=== PATIENT | female | born 1945 | race Caucasian/White ===

== ENCOUNTER → 2020-04-10 | Outpatient (CLI) | payer OTHER ==
[~2020-04-10] MED LIST: ACETAMINOPHEN-1 EAC1 PO; CAL MAG ASPART1 EACH PO; CARVEDILOL3.125 MG PO; CENTRUM SILVER1 EAC4 PO; COREG CR20 MG; FISH OIL 1,0001 EAC5 PO; KLOR-CON 10 ER10 MEQ PO; LEVOTHYROXINE0.05 MG; MINIPRIN81 MG; PHENERGAN 25 MG25 M1 PO; ZOCOR5 MG; ZOFRAN ODT4 MG PO
== END ==
LOC: SJCVC 11:49
PROVIDERS: ATTEND Internal Medicine
DX: I25.10 Atherosclerotic heart disease of native coronary artery without angina pectoris (principal); I10 Essential (primary) hypertension; E78.5 Hyperlipidemia, unspecified; I65.23 Occlusion and stenosis of bilateral carotid arteries; I73.9 Peripheral vascular disease, unspecified; Z95.1 Presence of aortocoronary bypass graft; Z90.49 Acquired absence of other specified parts of digestive tract; Z79.899 Other long term (current) drug therapy

== ENCOUNTER → 2020-11-28 | Outpatient (CLI) | payer OTHER | LOC: SJCVCIMAG 07:56 | PROVIDERS: ATTEND Internal Medicine | DX: I25.10 Atherosclerotic heart disease of native coronary artery without angina pectoris (principal); R00.1 Bradycardia, unspecified; I45.4 Nonspecific intraventricular block; I10 Essential (primary) hypertension; E78.5 Hyperlipidemia, unspecified; I73.9 Peripheral vascular disease, unspecified; I65.23 Occlusion and stenosis of bilateral carotid arteries; Z95.1 Presence of aortocoronary bypass graft; Z79.82 Long term (current) use of aspirin; Z79.899 Other long term (current) drug therapy ==

== ENCOUNTER → 2021-01-22 | Outpatient (CLI) | payer OTHER ==
[~2021-01-22] MED LIST changes: +ASA81BEC PO; +LEVOTHYROXINE50 MC1 PO; +LOSARTAN-HCTZ1 EACH PO
== END ==
LOC: LAB 09:27
PROVIDERS: ATTEND Orthopaedic Surgery
DX: Z01.812 Encounter for preprocedural laboratory examination (principal); Z20.822 Contact with and (suspected) exposure to COVID-19

== ENCOUNTER 2021-01-27 08:12 | Inpatient (IN) | payer OTHER ==
[2021-01-13 09:30] LABS: URINE BILIRUBIN NEGATIVE (Negative); URINE BLOOD NEGATIVE (Negative); URINE CLARITY CLEAR; URINE COLOR YELLOW; URINE GLUCOSE-RANDOM* NEGATIVE (Negative); URINE KETONES NEGATIVE (Negative); URINE LEUKOCYTES-REFLEX NEGATIVE (Negative); URINE NITRITE-REFLEX NEGATIVE (Negative); URINE PROTEIN (DIPSTICK) NEGATIVE (Negative); URINE UROBILINOGEN 0.2 E.U./dl (0.2-1.0)
[2021-01-13 09:49] LABS: HEMATOCRIT 39.9 % (37.0-47.0); HEMOGLOBIN 13.1 gm/dL (12.0-15.0); MCH 29.1 pg (26.0-34.0); MCHC 32.9 g/dL (28.0-37.0); MCV 88.5 fL (80.0-100.0); RBC 4.51 mil/uL (4.20-5.00); RDW 13.6 % (10.5-14.5); WBC 4.9 thou/uL (4.0-11.0)
[2021-01-13 09:52] LABS: INR 1.1; PROTIME 11.4 Seconds (9.3-11.4)
[2021-01-13 09:53] LABS: ALBUMIN 3.9 g/dL (3.4-5.0); CALCIUM 8.4 mg/dL (8.5-10.1); CREATININE 0.9 mg/dL (0.6-1.0); POTASSIUM 3.9 mmol/L (3.5-5.1)
[~2021-01-27] VITALS: Ht 165.1 cm; Wt 82.6 kg
[2021-01-27] VITALS (9 sets, daily range): BP systolic 110–166; BP diastolic 48–117
--- NOTE | 2021-01-27 14:42 | NUR ---
ASSUMED PT CARE THIS AM. PT BLOOD PRESSURE READING HIGH ON MACHINE, RETOOK BLOOD PRESSURE AND PRESSURE WAS NOT HIGH MACHINE WAS READING. PATIENT REPORTING NAUSEA, GAVE MEDS PER EMAR AND RESOLVED. INSTRUCTED PATIENT ON HOW TO USE CALL LIGHT, REPORTS UNDERSTANDING. REPORTING NUMBNESS IN RIGHT KNEE FROM FEMORAL BLOCK. ON 2 LITERS OXYGEN WHEN PATIENT CAME TO UNIT, PATIENT ON ROOM AIR NOW. ON A CLEAR LIQUID DIET TOLERATING WELL. PATIENT HAS FULL MOBILITY OF TOES, NO NUMBNESS OR TINGLING IN TOES. FALL PRECAUTIONS ARE IN PLACE.
[2021-01-28 03:21] VITALS: BP 116/47
[2021-01-28 05:34] LABS: HEMATOCRIT 26.5 % (37.0-47.0); HEMOGLOBIN 9.2 gm/dL (12.0-15.0); MCHC 34.5 g/dL (28.0-37.0); MCV 86.9 fL (80.0-100.0); RBC 3.05 mil/uL (4.20-5.00); RDW 13.3 % (10.5-14.5); WBC 9.3 thou/uL (4.0-11.0)
--- NOTE | 2021-01-28 05:43 | NUR ---
RECEIVED CARE OF THIS PATIENT AT 1900. PATIENT ALERT AND ORIENTED X4. HAS ANA, TEDS, SCD;S AND ICE ON R KNEE. HEMAVAC INTACT. C/O N/V AND PAIN, MED GIVEN FOR BOTH. NOT UP OUT OF BED YET D/T THE NUMBNESS OF R LEG AND THE N/V. SLEPT OFF AND ON DURING NIGHT.
[2021-01-28 07:56] VITALS: BP 110/47
[2021-01-28 16:05] VITALS: BP 125/39
[2021-01-28 16:09] VITALS: BP 125/39
--- NOTE | 2021-01-28 18:39 | O ---
[facility] [place] [address] OPERATIVE REPORT Name: LUCY ALAS Room #: 438-P ADM IN M.R.#: [id number] Admission: 01/27/21 Attend Phys: Mac Duvall MD Discharge: Date of : 43 Report #: [id number] THIS REPORT FOR: cc: Lukasz White MD, Neal A. MD Clymer, David J. MD ~ DATE OF SERVICE: 01/27/2021 PREOPERATIVE DIAGNOSIS: Degenerative arthritis, right knee. POSTOPERATIVE DIAGNOSIS: Degenerative arthritis, right knee. PROCEDURE: Right total knee arthroplasty. SURGEON: Mac Duvall MD INDICATIONS: This is very active and fit 76-year-old female remains fully active and independent and is still working. She complains of progressive right knee pain, which limits her activities both at work and at home. Clinical exam and x-rays confirm moderate degenerative arthritis. She has tried conservative measures including anti-inflammatories and joint injection without much lasting benefit. She has decided to go ahead with right total knee arthroplasty. DESCRIPTION OF PROCEDURE: The patient was taken to the operating room where she was placed under general anesthesia. Prophylactic intravenous antibiotics were administered. The right knee and leg were meticulously prepped and draped and a thigh tourniquet inflated to 300 mmHg. An anterior longitudinal skin incision was made and carried through the medial retinaculum. The patella was reflected laterally. Moderate degenerative change in all 3 compartments was noted. The Pat and Nephew knee system was utilized. Intramedullary guides were used on both the femur and the tibia. The femur was cut in 5 degrees of valgus. The tibia was cut perpendicular to the long axis of the bone. The femur seemed best suited for a size 4 femoral component and the trial seated nicely. The tibia was also best suited for a size 4 tibial component and the trial seated nicely. A trial reduction was performed and a 9 mm polyethylene insert fit nicely. This resulted in full knee extension and flexion beyond 130 degrees with good stability. The patellar surface was resected and a 35 mm patellar button fit nicely. Appropriate anchor holes were created. The trial components were removed. The surfaces were thoroughly irrigated and dried. The intramedullary canal was blocked with bone block on both the femoral and tibial sides. Methyl methacrylate cement was mixed and injected into the porous surface of the proximal tibia. The permanent components were brought on to the field. The Pat and Nephew size 4 Lupe II tibial baseplate was [address] [address] OPERATIVE REPORT Name: LUCY ALAS Room #: 438-P [facility] IN .R.#: [id number] Admission: 01/27/21 Attend Phys: Mac Duvall MD Discharge: Date of : 43 Report #: [id number]. This was impacted into position. It seated nicely and appeared to be secure. Excess cement was removed from its margins. A size 4 cruciate retaining 9 mm thick patellar component was then inserted and snapped into place. This seated nicely and appeared to be secure. The size 4 right Legion femoral component was impacted on the distal femur. A small amount of cement was used at the distal locking holes as the bone was moderately osteopenic. This component also seated nicely and appeared to be secure. The patellar button was cemented into place using cement and appropriate anchor holes. It was secured with a patellar clamp while the cement hardened. All excess cement was removed. Once the cement was firm, range of motion, alignment and stability were assessed and felt to be satisfactory. The knee demonstrates full knee extension and flexion beyond 130 degrees and demonstrates good stability with varus and valgus stress. The patellar tracks nicely and appears to be stable. A single Hemovac was then left in the wound exiting through a separate stab incision. The fascia was closed with multiple #1 Vicryl sutures. The tourniquet was deflated after a total tourniquet time of 48 minutes. Good hemostasis was confirmed. The subcutaneous tissues were thoroughly irrigated and then closed using 0 Monocryl. Skin shar were used in the skin. The patient was then awakened and returned to recovery room in good condition. <ELECTRONICALLY SIGNED> By: Mac Duvall MD 01/28/21 [id number] Mac Duvall MD /nt
[2021-01-28 19:30] VITALS: BP 149/42
--- NOTE | 2021-01-28 20:05 | NUR ---
PT A&&OX4, VSS, PAIN MEDICATION GIVEN. PATIENT CONTINUES TO HAVE NAUSEA. PATIENT WORKED WITH PT. NO OUTPUT FROM HEMOVAC. ORDER PLACED TO REMOVE HEMAVAC AT SHIFT CHANGE, NOTIFIED ONCOMING NURSE. PATIENT DID NOT VOMIT. PATIENT ADVANCED TO FULL LIQUIDS. NO SIGNS OF DISTRESS. WILL CONTINUE TO MONITOR.
[2021-01-29 03:49] VITALS: BP 145/46
--- NOTE | 2021-01-29 05:09 | NUR ---
RECIEVED CAR OF THIS PATIENT AT 1900. PATIENT ALERT AND ORIENTED X4. C/O PAIN AND NAUSEA. MED GIVEN FOR BOTH. REMAINS ON BEDREST D/T LEGS BEING WEAK. SLEPT MOST OF NIGHT.
[2021-01-29 06:00] LABS: HEMATOCRIT 26.2 % (37.0-47.0); MCH 29.9 pg (26.0-34.0); MCHC 34.5 g/dL (28.0-37.0); MCV 86.8 fL (80.0-100.0); RBC 3.02 mil/uL (4.20-5.00); RDW 13.6 % (10.5-14.5); WBC 9.4 thou/uL (4.0-11.0)
[2021-01-29 08:30] VITALS: BP 136/53
--- NOTE | 2021-01-29 10:18 | NUR ---
ASSESSMENT: CM REVIEWED CHART AND SPOKE WITH PATIENT. PT IS ALERT AND ORIENTED X4. PT IS S/P RIGHT TKR. PT REPORTS LIVING IN AN APT ALONE. PT HAS TWO VERY LONG WIDE STEPS ON FROM THE STREET TO GET TO HER APT. PT REPORTS NO STEPS ONCE INSIDE. PT HAS A WALKER AT HOME THAT IS BORROWED BUT IS A THREE WHEELED ROLLATER. PHYSICAL THERAPY WORKING WITH PATIENT REGARDING IF THIS IS THE SAFEST OPTION OR NOT. PT REPORTS SHE IS WANTING HH AT DISCHARGE AND HAS NOT HAD BEFORE. PT HAS NO PREFERENCE OF HH AGENCY. CM FAXED REFERRAL TO [facility]. PT REPORTS HER SON IS SUPPORTIVE BUT WORKS [employer] DIST[employer]. PT STATES HER FAMILY AND [employer] CAN HELP IF SHE NEEDS TO RUN ERRANDS. PT WILL CONTINUE WITH THERAPY. CM WILL CONTINUE TO FOLLOW TO ASSIST NEEDED.
[2021-01-29 15:15] VITALS: BP 126/39
--- NOTE | 2021-01-29 19:00 | NUR ---
PT CARE ASSUMED AT 0700. A&Ox4. PT UP IN THE RECLINER MOST OF THE DAY. TRANSFERRED PT TO THE BEDSIDE COMMODE WHEN TRANSFERRING BACK TO THE RECLINER WITH PT PATIENT HAD AN EPISODE OF HER BLOOD PRESSURE DROPPING. VITALS STABLE AFTER RESTING A FEW MINUTES. LIPSCOMB IN PLACE. IV PATENT WITH NO REDNESS OR EDEMA, SALINE LOCKED. ANA DRESSING. ICEPACK. NO EPISODES OF NAUSEA OR VOMITTING. POTENTIAL DISCAHRGE TOMORROW. FALL PROTOCOL IN PLACE. CALL LIGHT IN REACH. PAIN CONTROLLED WELL WITH PAIN MEDICATION ON BOARD.
[2021-01-29 19:29] VITALS: BP 142/51
--- NOTE | 2021-01-30 00:57 | NUR ---
ASSESSED AT START OF SHIFT. PT A&OX4 RESTING IN BED DENIES N/V ON ASSESSEMENT. EVENING MED GIVEN AND PT KIRK IT WELL. UPX1 TO BSC. ANA DRESSING AND ICE PACK IN PLACE. FALL PREC MAINTAINED AND WILL CONT TO MONITOR.
[2021-01-30 04:43] VITALS: BP 143/48
[2021-01-30 06:05] LABS: HEMATOCRIT 25.1 % (37.0-47.0); HEMOGLOBIN 8.6 gm/dL (12.0-15.0); MCH 30.2 pg (26.0-34.0); MCHC 34.4 g/dL (28.0-37.0); MCV 87.9 fL (80.0-100.0); RBC 2.86 mil/uL (4.20-5.00); RDW 13.4 % (10.5-14.5); WBC 7.8 thou/uL (4.0-11.0)
[2021-01-30 08:25] VITALS: BP 129/100
--- NOTE | 2021-01-30 10:00 | NUR ---
Received awake on bed. Due medications given as prescribed, able to swallow meds w/o difficulty. On room air. Vital signs stable. On MS, not on telemetry; no complains and signs of chest pain, crushing sensation and heaviness. On full liquid diet, tolerating well; no nausea, no vomiting and no abdominal pain noted- Pt seen and examined by Dr White this AM, diet progressed to regular for breakfast- to monitor for nausea and vomiting. Continent of bowel and bladder, able to use bedpan and bedside commode. With SL at R hand- intac. S/P TKR POD 3- dressing C/D/I; ongoing PT; complained of pain, due PRN pain meds given as prescribed. Ice packs, SCDs and thigh high bilat SONYA hose in place; ANA dressing in place. Falls bundle in place. To continue monitoring patient.
--- NOTE | 2021-01-30 12:56 | NUR ---
on-going assessment: cm reviewed chart and met with patient. PT CONTINUES TO WORK WITH PT/OT AND IS SLOWLY PROGRESSION. PENDING HER PROGRESSION SHE MAY REQUIRE POST ACUTE CARE AT DISCHARGE AND CM DISCUSSED WITH PATIENT. PT STATES SHE PREFERS TO GO HOME IF POSSIBLE AND WORRIED ABOUT THE PANDEMIC AT A SNF BUT REPORTS SHE WOULD AGREE IF NEEDED. PT WANTED A REFERRAL SENT TO [facility]. CM FAXED REFERRAL AND NOTIFIED IRAIS [facility] AT [facility]. CM WILL CONTINUE TO FOLLOW TO SEE HOW PATIENT PRGORESSES WITH PT/OT.
[2021-01-30 16:29] VITALS: BP 120/47
[2021-01-30 19:37] VITALS: BP 130/55
--- NOTE | 2021-01-30 23:03 | NUR ---
ASSESSED AT START OF SHIFT. PT A&OX4. DENIES NAUSEA/VOMITING. EVENING MEDS GIVEN AND PT KIRK IT WELL. IV INTACT AND SALINE LOCK. PT VOIDS VIA BEDPAN. FALL PREC IN PLACE AND CALL LIGHT AT REACH. NO FURTHER SIGNS OF DISCOMFORT WILL CONT TO MONITOR.
[2021-01-31 04:47] VITALS: BP 138/58
[2021-01-31 07:55] VITALS: BP 132/56
--- NOTE | 2021-01-31 14:38 | NUR ---
ON-GOING ASSESSMENT: CM REVIEWED CHART AND MET WITH PATIENT AT THE BEDSIDE. PT REPORTS SHE IS STILL FEELING VERY NAUSEATED AND DOES NOT FEEL SHE WILL BE ABLE TO GO HOME IF THIS REMAINS. CM DISCUSSED SNF OPTIONS AND REVIEWED LIST WITH HER. SHE REQUESTED REFERRALS BE SENT TO [facility]. CM FAXED REFERRALS. ROHAN D[facility]AZ AT [facility] STATES THEY HAVE BEDS OPEN AND WILL REVIEW. CM LEFT VM WITH ADMISSIONS AT [facility]. PT WILL ALSO NEED A NEGATIVE COVID TEST PRIOR TO ADMISSIONS. CM NOTIFIED BEDSIDE RN WHO REPORTS HE WILL COLLECT IT. AWAITING FURTHER INPUT FROM [facility].
--- NOTE | 2021-01-31 15:25 | NUR ---
Assumed care of pt at 0700. Pt a&ox4. Pain controlled with prn pain meds. Dressing c/d/i. Pt very nauseous with movement. Not controlled with medications. Possible d/c to SNF tomorrow. RA. Ice pack. Call light within reach. Will continue to monitor.
[2021-01-31 15:50] VITALS: BP 125/44
[2021-01-31] MEDS ORDERED: XARELTO10 MG PO (16:26)
--- NOTE | 2021-01-31 17:27 | NUR ---
FAXED [facility] THE PATIENT'S OT & PT EVALUATIONS AND FOLLOW UP PROGRESS NOTES. [facility] REQUESTED THE REPORTS BEFORE PATIENT'S ADMISSION TOMORROW, 02/01/21. [facility] P [phone]; FAX [phone]
[2021-01-31 20:56] VITALS: BP 108/57
--- NOTE | 2021-02-01 04:34 | NUR ---
RECIEVED CARE OF THIS PATIENT AT 1900. PATIENT ALERT AND ORIENTED X4. REMAINS ON BEDREST USING A BEDPAN. NO C/O NAUSEA THIS SHIFT. C/O PAIN, MED GIVEN. DRESSING ON R LOWER EXT D/I. SLEPT OFF AND ON DURING NIGHT.
--- NOTE | 2021-02-01 19:35 | NUR ---
Pt ready to discahrge to [facility] tomorrow 02/02. Second covid test collected and needs to be faxed to [facility] in the morning. [facility] will supervisor picking crew patient at 1130. Up to the bedside commode all day. One minor panic attack that was easily redirected. No nausea or vomitting. All papers are signed. Chart copy in the artillery or naval gunfire observer.
[2021-02-01 20:08] VITALS: BP 120/56
--- NOTE | 2021-02-02 02:34 | NUR ---
ASSESSED AT START OF SHIFT. PT A&0X4 WITH HEARING AID PRESENT. PT UPX1 TO BSC. HAD A BM THIS SHIFT. PT TO D/C TOMORROW TO [facility] NE[facility]. FALL PREC IN PLACE AND TRAMADOL GIVEN FOR PAIN WILL CONT TO MONITOR.
[2021-02-02 09:56] VITALS: BP 157/63
--- NOTE | 2021-02-02 10:25 | NUR ---
ASSUMED PT CARE THIS AM. PT IS ALERT & ORIENTED X4. PT HAS IV SITE ON R HAND SALINE LOCKED. PT HAS HARD OF HEARING. PT DENIES PAIN, NAUSEA AND VOMITING THIS AM. PT IS ON ROOM AIR. PT HAD BM YESTERDAY & USES BSC. PT ON THE CHAIR WATCHING TV. CALL [facility] FOR [facility] REPORT BUT NO ONE ANSWERS. WILL CONTINUE TO MONITOR PT. PLAN IS PATIENT WILL BE DISCHARGE THIS NOON.
== END 2021-02-02 11:51 | DRG 470 ==
LOC: TBA 08:12 → 4S 08:12 → OR 08:48 → EDSTATUS 10:29 → PRE 10:34 → 4S 12:23 → OR 13:12 → 4S 02-02 11:51
PROVIDERS: Family Medicine; ADMIT Orthopaedic Surgery; ATTEND Orthopaedic Surgery
PROC: 0SRC0J9 Replacement of Right Knee Joint with Synthetic Substitute, Cemented, Open Approach (ICD-10-PCS; principal; 2021-01-27)
PROC: 3E0T3BZ Introduction of Anesthetic Agent into Peripheral Nerves and Plexi, Percutaneous Approach (ICD-10-PCS; principal; 2021-01-27)
DX: M17.11 Unilateral primary osteoarthritis, right knee (principal); Z20.822 Contact with and (suspected) exposure to COVID-19; I10 Essential (primary) hypertension; E03.9 Hypothyroidism, unspecified; E78.5 Hyperlipidemia, unspecified; Z79.899 Other long term (current) drug therapy; Z88.0 Allergy status to penicillin; Z88.8 Allergy status to other drugs, medicaments and biological substances; Z91.040 Latex allergy status; Z28.21 Immunization not carried out because of patient refusal
CPT/HCPCS: 10102; 50010; 50101; 50415; 50954; 51130; 51225; 51412; 56525; 57095; 57103; 57104; 57180; 58449; 62110; 62900; 64043; 65060; 70005

== ENCOUNTER → 2021-05-30 | Outpatient (CLI) | payer OTHER ==
[~2021-05-30] MED LIST changes: +XARELTO10 MG PO
== END ==
LOC: SJCVCIMAG 07:11
PROVIDERS: ATTEND Internal Medicine
DX: T82.858A Stenosis of other vascular prosthetic devices, implants and grafts, initial encounter (principal); R94.31 Abnormal electrocardiogram [ECG] [EKG]; R00.1 Bradycardia, unspecified; I10 Essential (primary) hypertension; I25.10 Atherosclerotic heart disease of native coronary artery without angina pectoris; E78.5 Hyperlipidemia, unspecified; I73.9 Peripheral vascular disease, unspecified; I65.23 Occlusion and stenosis of bilateral carotid arteries; Z95.1 Presence of aortocoronary bypass graft; Z95.828 Presence of other vascular implants and grafts; Z90.49 Acquired absence of other specified parts of digestive tract; Z88.0 Allergy status to penicillin; Z88.8 Allergy status to other drugs, medicaments and biological substances; Z79.899 Other long term (current) drug therapy; Z82.49 Family history of ischemic heart disease and other diseases of the circulatory system; Y83.8 Other surgical procedures as the cause of abnormal reaction of the patient, or of later complication, without mention of misadventure at the time of the procedure; Y92.89 Other specified places as the place of occurrence of the external cause; Z79.82 Long term (current) use of aspirin

== ENCOUNTER → 2021-11-18 | Outpatient (CLI) | payer OTHER | LOC: SJCVCIMAG 08:21 | PROVIDERS: ATTEND Internal Medicine | DX: I65.23 Occlusion and stenosis of bilateral carotid arteries (principal); R94.31 Abnormal electrocardiogram [ECG] [EKG]; I25.10 Atherosclerotic heart disease of native coronary artery without angina pectoris; I10 Essential (primary) hypertension; E78.5 Hyperlipidemia, unspecified; I73.9 Peripheral vascular disease, unspecified; Z95.1 Presence of aortocoronary bypass graft; Z79.82 Long term (current) use of aspirin; Z79.899 Other long term (current) drug therapy; Z82.49 Family history of ischemic heart disease and other diseases of the circulatory system; Z88.0 Allergy status to penicillin; Z88.8 Allergy status to other drugs, medicaments and biological substances ==